=== PATIENT | male | born 1930 | race African-American/Black ===

== ENCOUNTER 2018-01-08 15:05 | Observation (INO) | payer MEDICARE, OTHER ==
[2018-01-08] MEDS ORDERED: Nitroglycerin 0.4 MG TAB (25 Tab Bottle) SL PRN (16:45)
[2018-01-08] MEDS ORDERED: Loratadine 10 MG TAB PO PRN (16:45)
[2018-01-08] MEDS ORDERED: hydrALAZINE 20 MG/ML VIAL SLOW IVP PRN (16:45)
[2018-01-08] MEDS ORDERED: cloNIDine 0.1 MG TAB PO PRN (16:45)
[2018-01-08] MEDS ORDERED: Acetaminophen 325 MG TAB PO PRN (16:45)
[2018-01-08] MEDS ORDERED: traMADol HCl 50 MG TAB PO PRN (16:45)
[2018-01-08] MEDS ORDERED: Benzonatate 100 MG CAP PO PRN (16:45)
[2018-01-08] MEDS ORDERED: Mag-Al 1200 mg/1200 mg/30 ML UDCUP PO PRN (16:45)
[2018-01-08] MEDS ORDERED: Senokot 8.6 MG TAB PO PRN ×2 (16:45)
[2018-01-08] MEDS ORDERED: Bisacodyl 5 MG TAB PO PRN ×2 (16:45)
[2018-01-08] MEDS ORDERED: Sodium Chloride 0.9% 1,000 ML IV SCH (16:45)
[2018-01-08] MEDS ORDERED: Diabetic Tussin 200 MG/10 ML UDCUP PO PRN (16:45)
[2018-01-08] MEDS ORDERED: Ondansetron HCl/PF 4 MG/2 ML Vial IVP PRN ×2 (16:45)
[2018-01-08] MEDS ORDERED: Calcium Carbonate 500 MG ChewTAB PO PRN (16:45)
[2018-01-08] MEDS ORDERED: Donepezil HCl 10 MG TAB PO SCH (21:00)
[2018-01-09 03:03] VITALS: BMI 20.8
[2018-01-09 04:39] LABS: #Eosinphils 0.1 thou/uL (0.0-0.7); #Monocytes 0.3 thou/uL (0.11-0.59); #Neutrophils 1.7 thou/uL (1.40-6.50); %Basophils 0.7 % (0.0-1.0); %Eosinophils 1.4 % (0.0-10.0); %Lymphocytes 49.3 % (21.0-51.0); %Neutrophils 40.7 % (42.0-75.0); Hemoglobin 12.8 g/dL (14.0-18.0); Mean Corpuscular HGB CONC 32.9 g/dL (32.0-36.0); Mean Corpuscular Volume 91.1 fl (80.0-94.0); Mean Platelet Volume 8.5 fL (7.4-10.4); Platelet Count 161 thou/uL (130-400); RBC Distribution Width 12.8 % (11.5-14.5); Red Blood Cell (RBC) Count 4.26 mill/uL (4.70-6.10); White Blood Cell (WBC) Count 4.1 thou/uL (4.8-10.8)
[2018-01-09 05:04] LABS: Anion Gap 9 mmol/L (10-20); BUN (Urea Nitrogen) 16 mg/dL (8.4-25.7); Calc. Creatinine Clearance 41 mL/min (70-130); Calcium 8.9 mg/dL (7.8-10.44); Carbon Dioxide 28 mmol/L (23-31); Chloride 105 mmol/L (98-107); Estimated GFR-MDRD 72; Glucose 81 mg/dL (83-110); Potassium 3.8 mmol/L (3.5-5.1); Sodium 138 mmol/L (136-145)
[2018-01-09 06:21] LABS: Cardiac Risk 2.6 (Less than 4.5)
[2018-01-09] MEDS ORDERED: Aspirin 325 mg Enteric Coated Tablet PO SCH (09:00)
[2018-01-09] MEDS ORDERED: Enoxaparin Sodium 40 MG/0.4 ML SYRINGE SC SCH (09:00)
[2018-01-09] MEDS ORDERED: risperiDONE 0.25 MG TAB PO SCH (09:00)
--- NOTE | 2018-01-09 13:02 | HP ---
DATE OF ADMISSION: 01/08/2018 PRIMARY CARE PHYSICIAN: Unknown. The patient is being admitted as [facility]. CHIEF COMPLAINT: Facial droop and dysphagia and slurred speech. HISTORY OF PRESENT ILLNESS: Mr. Dennis is an 87-year-old male with past medical history of Madsen's pa lsy, Alzheimer dementia, hypertension, osteoarthritis, and history of intracranial bleed x2, who was brought into the ER for the above-mentioned complaint. History is mainly obtained by the record revi ew and discussion with the admitting ER physician, as there is no family in the room at this time and the patient is not able to provide any history because of dementia. The patient initially presented to [facility] Emergency Room in [place] with complains of chest pain, diaphoresis, and then started to have some changes in his gait and was noticed to have left-elham ed facial droop and some slurred speech. He was transferred to our facility for further workup of TI A. A CT scan of the brain done in the [place] ER was negative. Chest x-ray was negative. By the time the patient presented to the ER, his symptoms have improved significantly according to th e family members who were present earlier. As per the report from nursing, he was able to ambulate i n the room and used the urinal without any assistance. He was last admitted to our facility last year with similar symptoms and found to have a Madsen's palsy . No other history of review of systems is obtainable from this patient at this time. He is now alexandria ng admitted to stroke floor for further workup and rule out transient ischemic attack/cerebrovascular accident. PAST MEDICAL HISTORY: 1. Madsen's palsy in 11/2016. 2. Alzheimer dementia. 3. Hypertension. 4. Coronary artery disease. 5. History of stroke in the past. 6. History of bradycardia, status post pacemaker placement in 2013. 7. Osteoarthritis. 8. Sleep disorder. 9. Glaucoma. 10. History of subdural hematoma in 2013. PAST SURGICAL HISTORY: 1. Pacemaker. 2. Cataract. SOCIAL HISTORY: No history of drug, tobacco or alcohol abuse. PSYCHIATRIC HISTORY: No anxiety or no depression per the record. FAMILY HISTORY: As per EMR not noticed. As it is not recorded and the patient is unable to provide any history because of dementia. REVIEW OF SYSTEMS: Unable to obtain because of dementia, but patient overall denies any discomfort. LABORATORY DATA: Labs done at [place] [facility] are reviewed extensively. BNP normal at 39. U rinalysis unremarkable. Serum chemistry is all within normal range. BUN 15, creatinine 1.42, sodium 142, potassium 4.4, chloride 107, bicarbonate 27. Liver enzymes within normal limit. Total protein 7.1, albumin 3.9. INR 1.1, troponin 0.04. MEDICATIONS: As per the ER records, aspirin 81 mg daily, timolol eyedrops, donepezil 10 mg daily, ri speridone 0.25 mg at bedtime, hydralazine 25 t.i.d. and Refresh Tears eyedrops. ALLERGIES: No known medication allergies. LABORATORY DATA: CBC shows WBCs at 3.4, hemoglobin 13.5 with hematocrit of 40.5, platelet count of [address] scan of the head shows stable findings without any acute intracranial abnormalities. Chest x-ray done in [place] is negative for any acute changes. Dual lead left subclavian transvenous pacemaker d evice is seen. There is no pleural effusion or pneumothorax or infiltrates. A 12-lead EKG done in [facility] emergency room shows junctional rhythm at 73 beats per minute without any evidence of ST elevation MA. PHYSICAL EXAMINATION: VITAL SIGNS: Upon presentation, blood pressure 151/113, respirations 16, saturating 96% on room air, pulse of 83, temperature 98.5. GENERAL: He is in no acute distress. He is fidgety and moving around in the bed by himself. He is oriented to self only. HEENT: Head is normocephalic, atraumatic. Pupils equal, reactive to light. Mucous membrane is mois t and pink. No oropharyngeal exudate or erythema. NECK: Supple without any lymphadenopathy, JVD or bruit. CHEST: Clear to auscultation without any wheezing, rales or rhonchi. CARDIOVASCULAR: Rhythm is regular without any murmur, rubs or gallops. ABDOMEN: Soft, nontender, nondistended with positive bowel sounds. EXTREMITIES: Free of any cyanosis, clubbing, or edema. NEUROLOGIC: Limited because the patient does not follow any commands. There is slight left facial d yolanda which resolved when he smiles. Otherwise, no focal motor deficits. He is moving all 4 extremit ies against resistance. SKIN: Free of any rashes or bruises. I feel warm or dry to touch. PSYCHIATRIC: Normal affect. He does appear oriented only to self at this time. IMPRESSION AND PLAN: 1. Facial droop and slurred speech and gait imbalance, unclear if the patient's symptoms are suggest errol of a transient ischemic attack or not. He will be admitted for further evaluation. Apparently, his pacemaker device is MRI compatible as he has had MRI done in the past. We will obtain an MRI of his brain along with transthoracic echocardiogram. Last echo done in 2017 was rather unremarkable. We will request consultations from Neurology and start him on full dose aspirin for now. Check lipid panel and add statin as tolerated. No significant neurological deficits noticeable on my exam at th is time. We will have physical therapy, occupational therapy, and speech therapy evaluate him as wel l. Keep him n.p.o. until he is cleared by speech therapy for swallow. He will be started on gentle IV fluid hydration. 2. History of hypertension. We will allow for permissive hypertension secondary to possibility of a cute stroke and put him on p.r.n. medications as needed. 3. History of dementia. We will restart his donepezil and risperidone. 4. Confirm home medication and restart selected home medication. 5. Add P.r.n. medication order set. 6. Code status, unable to clarify. Presumed FULL at this time. Further will be discussed when the family is here. 7. Deep venous thrombosis and gastrointestinal prophylaxis. DISPOSITION: Mr. Dennis is currently being admitted under observation status to stroke unit to rule out transient ischemic attack. Further management will depend upon his clinical course.
--- NOTE | 2018-01-09 13:52 | PDOC.PN ---
- Subjective Encounter Start Date: 01/09/18 Encounter Start Time: 13:50 Subjective: all symptoms resolved per Son present at bedside -: pt walked well w Pt w some imbalance which is baseline for him -: no more facial droop,speech issues or trouble eating mentation at baseline - Objective MAR Reviewed: Yes Vital Signs & Weight: Vital Signs (12 hours) Temp Pulse Resp BP BP Pulse Ox 01/09/18 12:00 98.2 F 62 16 108/59 L 99 01/09/18 08:23 98.1 F 74 18 146/81 H 98 01/09/18 08:15 98.1 F 74 16 146/81 H 98 01/09/18 08:06 98.1 F 74 18 146/81 H 98 01/09/18 03:27 98.0 F 77 18 151/83 H 98 Weight Admit Weight 4.833 oz Weight 137 lb I&O: 01/08/18 01/09/18 01/10/18 06:59 06:59 06:59 Intake Total 120 Output Total 350 Balance -230 Result Diagrams: 01/09/18 04:05 01/09/18 04:05 Additional Labs: Laboratory Tests 01/09/18 04:05 Triglycerides 65 Cholesterol 166 LDL Cholesterol, Calc 88 HDL Cholesterol 65 Phys Exam - Physical Examination Constitutional: NAD HEENT: PERRLA, moist MMs, sclera anicteric, oral pharynx no lesions Neck: no nodes, no JVD, supple, full ROM Respiratory: no wheezing, no rales, no rhonchi, clear to auscultation bilateral Cardiovascular: RRR, no significant murmur, no rub Gastrointestinal: soft, non-tender, no distention, positive bowel sounds Musculoskeletal: no edema, pulses present Neurological: non-focal, normal sensation, moves all 4 limbs mild left facial droop & loss of l naso-labial fold Lymphatic: no nodes Psychiatric: normal affect oriented to self 9baseline per son) Skin: no rash Dx/Plan (1) TIA (transient ischemic attack) Status: Acute (2) Dementia Code(s): F03.90 - UNSPECIFIED DEMENTIA WITHOUT BEHAVIORAL DISTURBANCE Status: Chronic (3) Dyslipidemia Code(s): E78.5 - HYPERLIPIDEMIA, UNSPECIFIED Status: Chronic (4) Hypertension Code(s): I10 - ESSENTIAL (PRIMARY) HYPERTENSION Status: Chronic (5) CAD (coronary artery disease) Code(s): I25.10 - ATHSCL HEART DISEASE OF [place] CORONARY ARTERY W/O ANG PCTRS Status: Chronic - Plan incentive spirometry cont full dose ASA.cont statin -: MRI machine is down.suspect TIA ,will treat clinically -: neuro rec srequested -: HD stable.cont home meds as below. -: likey DC back to [facility] today of cleared by neuro on ASA,statin * . Review of Systems - Review of Systems Respiratory: negative: Cough, Dry, Shortness of Breath, Hemoptysis, SOB with Excertion, Pleuritic Pain, Sputum, Wheezing Cardiovascular: negative: chest pain, palpitations, orthopnea, paroxysmal nocturnal dyspnea, edema, light headedness, other Gastrointestinal: negative: Nausea, Vomiting, Abdominal Pain, Diarrhea, Constipation, Melena, Hematochezia, Other Genitourinary: negative: Dysuria, Frequency, Incontinence, Hematuria, Retention , Other Other: limited ROS due to dementia.denies any pain/discomfort. - Medications/Allergies Allergies/Adverse Reactions: Allergies Allergy/AdvReac Type Severity Reaction Status Date / Time No Known Drug Allergies Allergy Verified 01/09/18 04:13 Medications: Current Medications Acetaminophen (Tylenol) 650 mg PO Q4H PRN PRN Reason: Headache/Fever or Pain Al Hydroxide/Mg Hydroxide (Maalox) 30 ml PO Q6H PRN PRN Reason: Heartburn or Indigestion Artificial Tears (Tears Renewed 15ml Bottle) 1 drop R EYE TID [facility] Aspirin (Ecotrin) 325 mg PO DAILY [facility] Last Admin: 01/09/18 09:33 Dose: 325 mg Benzonatate (Tessalon) 100 mg PO Q4H PRN PRN Reason: Cough Bisacodyl (Dulcolax) 10 mg PO DAILYPRN PRN PRN Reason: Constipation Calcium Carbonate (Tums) 1,000 mg PO Q4H PRN PRN Reason: Heartburn or Indigestion Clonidine (Catapres) 0.1 mg PO Q4H PRN PRN Reason: Systolic BP > 170 Donepezil HCl (Aricept) 10 mg PO HS [facility] Last Admin: 01/08/18 22:06 Dose: 10 mg Donepezil HCl (Aricept) 10 mg PO HS [facility] Enoxaparin Sodium (Lovenox) 40 mg SC 0900 [facility] Last Admin: 01/09/18 09:33 Dose: 40 mg Guaifenesin (Robitussin Sf) 200 mg PO Q4H PRN PRN Reason: Cough Hydralazine HCl (Apresoline) 10 mg SLOW IVP Q4H PRN PRN Reason: Systolic BP > 180 Hydralazine HCl (Apresoline) 25 mg PO TID [facility] Latanoprost (Xalatan 0.005% Ophth Soln) 1 drop EA EYE HS [facility] Loratadine (Claritin) 10 mg PO DAILYPRN PRN PRN Reason: Sinus Symptoms Nitroglycerin (Nitrostat) 0.4 mg SL Q5MIN PRN PRN Reason: Chest Pain Ondansetron HCl (Zofran) 4 mg IVP Q6H PRN PRN Reason: Nausea/Vomiting Risperidone (Risperidone) 0.25 mg PO DAILY [facility] Last Admin: 01/09/18 09:33 Dose: 0.25 mg Senna (Senokot) 2 tab PO HSPRN PRN PRN Reason: Constipation Sodium Chloride (Flush - Normal Saline) 10 ml IVF PRN PRN PRN Reason: Saline Flush Tramadol HCl (Ultram) 50 mg PO Q4H PRN PRN Reason: Moderate Pain (4-6)
[2018-01-09] MEDS: hydrALAZINE 25 MG TAB PO SCH ×2 (16:16→20:29)
[2018-01-09] MEDS: Artificial Tear Sol 15 ML BOT R EYE SCH ×2 (16:19→20:28)
[2018-01-09] MEDS ORDERED: Atorvastatin Calcium 20 MG TAB PO SCH (21:00)
[2018-01-09] MEDS ORDERED: Donepezil HCl 10 MG TAB PO SCH (21:00)
[2018-01-09] MEDS ORDERED: Latanoprost 0.005% Ophth Soln 2.5 ml Bottle EA EYE SCH (21:00)
--- NOTE | 2018-01-09 23:13 | DIS ---
DATE OF ADMISSION: 01/08/2015 DATE OF DISCHARGE: 01/09/2018 CONDITION AT THE TIME OF DISCHARGE: Stable and improved. DISCHARGE DISPOSITION: Back to [facility] where the patient is a permanent resident. DISCHARGE DIAGNOSIS: Transient ischemic attack. SECONDARY DISCHARGE DIAGNOSES: 1. Chronic dementia. 2. Dyslipidemia. 3. Hypertension. 4. History of coronary artery disease. 5. History of Madsen's palsy. DISCHARGE MEDICATIONS: Resume home medications as per my H and P. New medication, Lipitor 20 mg at bedtime. INHOUSE CONSULTATION: Neurology, Dr. China Begum. PROCEDURES DONE IN THE HOSPITAL: Transthoracic echocardiogram, which is unremarkable. MRI was order ed, but could not be done, because MRI machine was down again in our hospital. PRIMARY CARE PHYSICIAN: [facility]. HOSPITAL COURSE: Mr. Dennis is an 87-year-old male with history of Madsen's palsy as well as Alzheimer 's dementia, coronary artery disease, history of stroke in the past, who is a resident of [facility]. He was brought in by the family when they noticed that one side of his face was droopy and he was having difficulty with his speech. He was transferred from [facility] emergency room. Initial CT scan of the brain and workup was negative over there including a urine including a UA. Chest x-r ay was negative as well. He was given aspirin and was admitted for further evaluation to stroke [facility]. Please see admission history and physical for further details. The patient's symptoms resolved quite quickly. He was almost back to his baseline yesterday evening, and as of this morning, he is 100% back to his baseline including his mentation, his speech, and his facial symptoms. He does have some facial droop, left, with loss of nasolabial fold on the left elham e on my evaluation suggesting that he indeed did have a TIA. Dr. Begum from Neurology has seen the pa rasheed and is agreeing with the diagnosis. At this time, he recommends continuation of the baby aspir in, but adding a statin to his regimen, which has been done and prescriptions have been provided and he is cleared for discharge from Neurology standpoint. The patient was seen and examined prior to discharge. He is back to his baseline and is walking in t he hallways with the help of the physical therapy. He will be discharged back to [facility]. Ple ase see hospitalist's progress note from today's date for further details including [id number] inte raction.
[2018-01-10 01:57] VITALS: TEMP 98.4
[2018-01-10 11:30] VITALS: BP 130/66
--- NOTE | 2018-01-10 21:30 | CON ---
DATE OF CONSULTATION: 01/09/2018 REFERRING PHYSICIAN: Lianet Schmid MD REASON FOR CONSULTATION: Facial droop. HISTORY OF PRESENT ILLNESS: Mr. Dennis is a pleasant 87-year-old -[place] male who has been consulted for evaluation of facial droop. History is obtained from daughter who was present at [facility]. Daughter reports that patient lives in an assisted living facility. He has a history of dementi a that is advanced. He was in assisted living facility where he started complaining of being chest p ain. He also became very clammy, which prompted them to take him to the [facility] Room, to have facial droop on the left side, which prompted them to transfer him to the [facility] Emergency Room for further evaluation. He has a history of Madsen's palsy, affecting the rig ht side. After arriving to the [place], his symptoms had resolved. He did not have any focal mot or weakness. His speech was unchanged and he did not complain of any headache, chest pain, or palpit ation at that time. PAST MEDICAL HISTORY: Significant for hypertension, Alzheimer dementia, coronary artery disease, Bel l's palsy, history of stroke, history of bradycardia in the past with a pacemaker placement, osteoart hritis, glaucoma, history of subdural hematoma in 2013. PAST SURGICAL HISTORY: Significant for pacemaker placement and cataract surgery. SOCIAL HISTORY: He currently lives in assisted living facility drugs. CURRENT MEDICATIONS: Please review MAR. ALLERGIES: No known drug allergies. FAMILY HISTORY: Noncontributory. REVIEW OF SYSTEMS: Unable to perform. PHYSICAL EXAMINATION: VITAL SIGNS: Blood pressure 122/68, pulse of 60, temperature of 98.6, respirations of 14, O2 sats of 100% on room air. GENERAL: A well-developed, well-nourished, -[place]aur[place] male, in no apparent distress. RESPIRATORY: Clear to auscultation bilaterally. CARDIOVASCULAR: Regular rate and rhythm. NEUROLOGIC: Mental status: The patient is awake and alert, but disoriented to person, place, and ti me. Speech and language: Minimal speech. Cranial nerves: Pupils are 3 mm and reactive. Visual fi elds are intact. Extraocular muscles are intact. Face is symmetric. Tongue and uvula are midline. Motor exam showed normal tone and bulk with a 5/5 strength in both upper and lower extremities. Sen dima appears intact. Deep tendon reflexes 1-2+ reflexes in both upper and lower extremities. Babins ki: Plantar responses flexion bilaterally. Coordination intact to [id number] and finger tap ping bilaterally. LABORATORY DATA: Reviewed, which included CBC, BMP, lipid profile, which is significant for WBC of 4 .1, hemoglobin of 12.8, hematocrit of 38.8 . IMAGING STUDIES: CT head without contrast was reviewed, which showed no acute intracranial abnormali ty. Echocardiogram results were reviewed, which showed no abnormality. IMPRESSION: 1. Transient episode of left facial droop that is now resolved, likely suggestive of transient ische romy attack. 2. Advanced dementia. 3. Hypertension. Mr. Dennis is a pleasant 87-year-old -[place] male with history of advanced dementia presente d with the left facial droop that is now resolved. This is likely suggestive of TIA. At this time, I would recommend continuing on aspirin 81 mg daily for since he is back to his baseline, he is okay to be discharged back to the assisted living facility.
--- NOTE | 2018-01-16 16:32 | EKG ---
Test Reason : Blood Pressure : / mmHG Vent. Rate : 073 BPM Atrial Rate : 073 BPM P-R Int : 000 ms QRS Dur : 070 ms QT Int : 134 ms P-R-T Axes : 000 029 000 degrees QTc Int : 147 ms Demand pacemaker; interpretation is based on intrinsic rhythm Accelerated Junctional rhythm with Premature ventricular complexes or Fusion complexes Abnormal ECG Confirmed by YOBANI SANTOS ([id number]), web editor COLE GILES ([id number]) on 01/16/2018 4:32:11 PM Referred By: Confirmed By:YOBANI SANTOS
== END 2018-01-09 20:48 ==
LOC: ERS 15:05 → 2SE 17:55
PROVIDERS: ADMIT Internal Medicine; ATTEND Internal Medicine
DX: G45.9 Transient cerebral ischemic attack, unspecified (principal); E78.5 Hyperlipidemia, unspecified; M19.90 Unspecified osteoarthritis, unspecified site; G47.9 Sleep disorder, unspecified; I10 Essential (primary) hypertension; Z79.899 Other long term (current) drug therapy; Z98.890 Other specified postprocedural states; Z79.82 Long term (current) use of aspirin
CPT/HCPCS: 80048; 80061; 85025; 93005; 93306; 96372; 97116; 97530; 99285; G0378; G8978; G8979; 36415; J1650

== ENCOUNTER 2020-04-24 17:25 | Emergency (ER) | payer MEDICARE, OTHER ==
--- NOTE | 2020-04-24 18:42 | RAD ---
EXAM: 2 views of the right hip HISTORY: Right hip pain after fall COMPARISON: None FINDINGS: 2 views of the right hip shows no evidence of acute fracture or dislocation. No degenerativ e changes are seen. No soft tissue swelling is present. Vascular calcifications are seen. IMPRESSION: No evidence of acute osseous abnormality.
--- NOTE | 2020-04-24 18:43 | RAD ---
Exam: Single view of the pelvis HISTORY: Pelvic and hip pain after fall COMPARISON: None FINDINGS: A single view the pelvis shows no evidence of acute fracture or dislocation. No degenerativ e changes seen in either hip. Vascular calcifications are seen. Degenerative changes are in the lumbar spine. IMPRESSION: No evidence of acute osseous abnormality.
[2020-04-24] MEDS ORDERED: Lorazepam 2 MG/ML VIAL ONE (18:48)
--- NOTE | 2020-04-24 19:34 | CT ---
EXAM: CT brain without contrast HISTORY: Fall with head trauma. History of dementia COMPARISON: 01/12/2014 TECHNIQUE: Multiple contiguous axial images were obtained and a CT of the brain without contrast. FINDINGS: Diffuse cerebral atrophy is seen. There are scattered hypodensities in the subcortical and periventricular white matter consistent with small vessel ischemic disease. There is no evidence of hydrocephalus, intracranial hemorrhage, or extra-axial fluid collection. The calvarium and overlying soft tissues are unremarkable. The visualized paranasal sinuses and masto id air cells are well aerated. IMPRESSION: No evidence of acute intracranial abnormality
--- NOTE | 2020-04-28 14:34 | EKG ---
Test Reason : Blood Pressure : / mmHG Vent. Rate : 066 BPM Atrial Rate : 066 BPM P-R Int : 214 ms QRS Dur : 074 ms QT Int : 422 ms P-R-T Axes : 073 -15 -08 degrees QTc Int : 442 ms Electronic atrial pacemaker Nonspecific T wave abnormality Abnormal ECG Confirmed by KENAN SUAREZ, TENZIN Norris ([id number]), editorial clerk COLE GILES ([id number]) on 04/28/2020 2:34:32 PM Referred By: Confirmed By:TENZIN GRAYSON MD
== END 2020-04-24 20:28 ==
LOC: ERS 17:25
DX: S00.83XA Contusion of other part of head, initial encounter (principal); I10 Essential (primary) hypertension; G30.9 Alzheimer's disease, unspecified; F02.80 Dementia in other diseases classified elsewhere, unspecified severity, without behavioral disturbance, psychotic disturbance, mood disturbance, and anxiety; M19.90 Unspecified osteoarthritis, unspecified site; G47.00 Insomnia, unspecified; G51.0 Bell's palsy; Z79.82 Long term (current) use of aspirin; Z79.899 Other long term (current) drug therapy; W18.30XA Fall on same level, unspecified, initial encounter
CPT/HCPCS: 70450; 72170; 93005; 96372; J2060